=== PATIENT | female | born 1990 | race Caucasian/White ===

== ENCOUNTER 2016-10-03 22:53 | Inpatient (IN) ==
--- NOTE | 2016-10-03 20:46 | OB/GYN History & Physical ---
Date of Encounter: 10/03/16 Time of Encounter: 20:44 Assessment and Plan (1) 37 or more weeks gestation of Current visit: Yes Status: Acute monitor FHT FHT external monitoring continue labor progression (2) Active labor at term Current visit: Yes Status: Acute FHT monitor continue normal labor progression History of Present Illness Chief complaint: contractions HPI: Ms. Saba is a 26 year old female at 37.2 DIMAS 3.17 c/o contractions starting at about 5 am this morning, that were occurring about every ten minutes this morning, which progressed to every 6 minutes right before she came to the hospital and are now occurring every 4 mins. She states that she passed her mucous plug about 1pm yesterday, no rupture of membranes or loss of fluids. Pt of Dr. Linton. Has had uncomplicated so far. States she is having some nausea that just started a few minutes ago coinciding with contractions, also minimal LE edema Denies headache, change in vision, CP, SOB, no abdominal pain or vomiting. GBS - HIV - RPR - Rubella immune varicella immune Hep B immune Past Med Surg Social Fam HX - Past Medical History Medical history: no medical history Psychiatric history: anxiety - Social History Smoking Status: Former smoker Smokeless Tobacco Status: No Alcohol use: none Drug use: none - Family History Mother Adopted: No Family Member Ethnicity: Non- Twin of Family Member: Yes, Fraternal Living Status: Still Living Hx Family Cardiac Disorders: No Hx Family Respiratory Disorders: No Hx Family Cancer: No Hx Family GI Disorders: No Hx Family Genitourinary Disorders: No Hx Family Endocrine Disorder: No Hx Family Musculoskeletal Disorders: No Hx Family Neuromuscular Disorders: No Hx Family Neurologic Disorders: No Hx Family HEENT Disorders: No Hx Family Autoimmune Disorders: No Hx Family Reproductive Disorders: No Hx Family Psychosocial Disorders: No Hx Family Medical Disorders: No Obstetrical History - Pregnancies : 3 Para: 1 Term: 1 Ab's: 1 Livin - History/Complications History/Complications: - PAP in 2014 no PMHx of STI HPI fr labs Medications and Allergies Pnv95/Ferrous Fumarate/FA [ Caplet] 1 tab PO DAILY 10/03/16 [History] Allergies Cefaclor [From Ceclor] Allergy (Verified 10/03/16 20:42) Hives Review of System OB All systems PM: reviewed and no additional remarkable complaints except as stated (except see HPI) - Constitutional Constitutional ROS IM: as per HPI Exam - Constitutional Constitutional: well developed, well nourished, no acute distress, average body habitus - HEENT HEENT: EOMI, Mucus Membranes Moist - Neck Neck exam: full ROM - Lungs Respiratory exam: CTAB - Cardiovascular Cardiovascular exam: RRR, +S1, +S2 - Abdomen Abdomen: Present: bowel sounds normal, gravid, non tender - Extremities Extremities exam: pedal edema (trace), radial pulses palpable and symetrical Deep Tendon Reflex Grade: 2+ Normal - Cervix Dilation: 5 (per nursing) Effacement: 80 (per nursing) - Uterus Uterus exam: Present: normal size (gravid) Results All other labs normal. - Attending Attestation Veto Ireland MD FACOG
[~2016-10-03 22:53] MED LIST: Epidural Premix (fent/bupiv) 110 ML EP ONE; Famotidine 20 MG/2 ML VIAL IVP PRN; Metoclopramide 10 MG/2 ML VIAL IVP PRN; Naloxone 0.4 MG/ML INJ IVP PRN; Ondansetron 4 MG/2 ML VIAL IVP PRN; Ringers Solution, Lactated 1,000 ML ONE
--- NOTE | 2016-10-03 23:01 | Anesthesia Evaluation PreOp ---
Date of Encounter: 10/03/16 Time of Encounter: 10:56 - Past History Planned Operation: vaginal del, spontaneous Labor Cardiac History: Denies any Significant Hx Pulmonary History: Denies Any Significant HX TUBE TELLER History: Denies Any Significant HX Other Medical History: Denies Any Significant HX Anesthesia History: No Prior Anesthetic Complications, Past Anesthesia Alcohol Use: none Drug use: none Medications and Allergies Pnv95/Ferrous Fumarate/FA [ Caplet] 1 tab PO DAILY 10/03/16 [History] Allergies Cefaclor [From Ceclor] Allergy (Verified 10/03/16 20:42) Hives Anesthesia Exam - HEENT Pupil (Motor): Pupils equal Mallampati: II (tongue ring present, to be removed) Teeth: Normal Oral Opening: Greater than 3 - TUBE TELLER LOC: Oriented TUBE TELLER Motor: Normal RUE, Normal LUE, Normal RLE, Normal LLE, Normal Face TUBE TELLER Sensory: Normal: RUE, LUE, RLE, LLE, Face - Cardiac Rhythm: Regular - Pulmonary Breath Sounds: bilateral Clear Respiratory Effort: Symmetrical
[2016-10-03 23:04] LABS: Basophils % 0.2 %; Eosinophils % 0.1 %; Hematocrit 37.3 % (35.3-44.9); Immature Granulocytes % 0.4 % (0-4); Lymphocytes # 2.2 K/mcL (0.6-4.6); Lymphocytes % 13.1 %; Mean Corpuscular HGB Conc 34.9 g/dL (31.6-35.5); Mean Corpuscular Volume 88.8 fL (83.0-100.0); Mean Platelet Volume 10.2 fL (9.4-12.4); Monocytes # 1.1 K/mcL (0.0-1.3); Monocytes % 6.6 %; Neutrophils # 13.2 K/mcL (1.6-8.9); Platelet Count 224 K/mcL (140-400); Red Cell Distribution Width 12.4 % (11.5-14.5); Segmented Neutrophils % 79.6 %
--- NOTE | 2016-10-03 23:31 | Anesthesia Procedures ---
Date of Encounter: 10/03/16 Time of Encounter: 23:21 Procedures: Anesthesia - Epidural/Spinal Patient ID/Chart reviewed: Yes Patient examined: Yes OB Eval: Gestational age: 37 OB Eval: : 2 OB Eval: Hx Para: 1 OB Eval: Dilated at (cm): 5 OB Eval: Contractions: Non-stressed pattern Consent Obtained: Yes Site Prep: Aseptic Technique, Sterile prep and drape, 0.5% Chlorhexidine/Alcohol Patient position: upright Local Anesthetic: Lidocaine 1% Amount of Local Anesthetic used: 2 Touhy Needle Gauge: 18 Touhy Needle Depth (cm): 7 Catheter Depth at Skin (cm): 11 Test Dose (1.5% Lido + Epi): Volume given (mls): 3 Test Dose Result: Negative Loading Dose: Other: 12ml from solution Loading Dose Administered: Thru Catheter Infusion Med: 0.125% Bupivacaine w/ 2 mcg/ml Fentanyl Infusion Rate (mls/hr): [address]: Tegaderm, Tape Interspace Used: L3-L4 Loss of Resistance (MARY): Yes (saline) Blood: No CSF: No Paresthesia: No Vitals + FHT's: vss though out, FHR stable per RN's
--- NOTE | 2016-10-04 00:56 | OB Labor Progress Note ---
Date of Encounter: 10/04/16 Time of Encounter: 00:54 Labor Progress Note - Subjective Subjective: states pain is improved with epidural no complaints at this time - Cervix Cervix: 6cm 90% effaced - Heart Tones Heart Tones: 140s reactive cat1 - [place]: every 3-4 mins
[2016-10-04] MEDS ORDERED: Epidural Premix (fent/bupiv) 110 ML EP ONE (04:49)
[2016-10-04] MEDS ORDERED: Oxytocin 20 units/ LR 1000 mL 20 UNIT/1,000 ML BAG IVC ONE ×3 (07:24→13:02)
[2016-10-04] MEDS: Ringers Solution, Lactated 1,000 ML IVC SCH (07:29)
--- NOTE | 2016-10-04 09:00 | OB Labor Progress Note ---
Date of Encounter: 10/04/16 Time of Encounter: 08:58 Labor Progress Note - Subjective Subjective: Comfortable with epidural. - Cervix Cervix: 9/100/0 - Heart Tones Heart Tones: 160's with RNST - [place]: uc's q 2 min - Interventions Interventions: AROM clear, expect . - Plan Plan: Expect .
--- NOTE | 2016-10-04 10:42 | OB/GYN Procedure Note ---
Delivery - Delivery Date: 10/04/16 Provider: Tobais Segovia Delivery induction: none Delivery augmentation: rupture of membranes Delivery monitor: external FHT, external uterine Anesthesia: epidural Estimated Blood Loss: 250 - Infant (s) A Delivery Date: 10/04/16 Delivery Time: 10:22 Presentation: vertex Position: TANVI Route of delivery: Gender: Male Viability: Viable Pounds: 7 Ounces: 10 at 1 minute: 8 at 5 mins: 9 Shoulder Dystocia: not encountered Specimens collected: cord blood Placenta: spontaneous Cord: 3 umbilical vessels - Repair Episiotomy: none Laceration Description: Periurethral (superficial on right) - Complications Delivery complications: none - Disposition Mom disposition: stable in LDR Baker disposition: stable in LDR - Comments Comments: Pt s/p without complications.
[2016-10-04] MEDS ORDERED: Acetaminophen 325 MG TABLET PO PRN (13:02)
[2016-10-04] MEDS ORDERED: Oxytocin 20 units/ LR 1000 mL 20 UNIT/1,000 ML BAG IV SCH (13:02)
[2016-10-04] MEDS ORDERED: Rho Immune Globulin 1,500 UNIT SYRINGE IM PRN (13:02)
[2016-10-04] MEDS ORDERED: Measles/Mumps/Rubella Vacc 0.5 ML VIAL SQ PRN (13:02)
[2016-10-04] MEDS: Ibuprofen 600 MG TABLET PO PRN ×2 (13:23→19:51)
[2016-10-05 04:14] LABS: Basophils # 0.1 K/mcL (0.0-0.2); Basophils % 0.3 %; Eosinophils # 0.1 K/mcL (0.0-0.6); Eosinophils % 0.7 %; Hematocrit 33.7 % (35.3-44.9); Immature Granulocytes % 0.7 % (0-4); Lymphocytes # 2.6 K/mcL (0.6-4.6); Lymphocytes % 14.8 %; Mean Corpuscular HGB Conc 33.5 g/dL (31.6-35.5); Mean Corpuscular Hemoglobin 30.9 pg (28.0-33.3); Mean Corpuscular Volume 92.1 fL (83.0-100.0); Mean Platelet Volume 10.2 fL (9.4-12.4); Monocytes # 1.2 K/mcL (0.0-1.3); Monocytes % 7.2 %; Neutrophils # 13.2 K/mcL (1.6-8.9); Platelet Count 204 K/mcL (140-400); Red Blood Count 3.66 M/mcL (3.82-4.97); Red Cell Distribution Width 12.8 % (11.5-14.5); Segmented Neutrophils % 76.3 %
[2016-10-05 04:28] LABS: Hemoglobin 11.3 g/dL (11.5-15.4)
[2016-10-05] MEDS ORDERED: Ringers Solution, Lactated 1,000 ML ONE (06:29)
[2016-10-05] MEDS: Ringers Solution, Lactated 1,000 ML IVC SCH (06:30)
[2016-10-05] MEDS ORDERED: Lidocaine -MPF 2% 2 ML VIAL ONE ×2 (07:17→07:18)
[2016-10-05] MEDS ORDERED: Lidocaine -MPF 4% 5 ML AMPUL ONE (07:17)
[2016-10-05] MEDS ORDERED: *HR* Succinylcholine 200 MG/10 ML VIAL IVP ONE (07:17)
[2016-10-05] MEDS ORDERED: *HR* FentaNYL (PF) 100 MCG/2 ML VIAL ONE (07:18)
[2016-10-05] MEDS ORDERED: *HR* Midazolam HCl 2 MG/2 ML VIAL ONE (07:18)
[2016-10-05] MEDS ORDERED: *HR* Propofol 200 MG/20 ML VIAL IVP ONE (07:18)
[2016-10-05] MEDS ORDERED: Bupivacaine/EPI 1:200k 0.25%PF 10 ML VIAL INFILT ONE (07:26)
[2016-10-05] MEDS ORDERED: Metoclopramide 10 MG/2 ML VIAL ONE (07:35)
[2016-10-05] MEDS ORDERED: Famotidine 20 MG/2 ML VIAL ONE (07:35)
[2016-10-05] MEDS ORDERED: Acetaminophen IV 1,000 MG/100 ML INFUS..BTL ONE (07:35)
--- NOTE | 2016-10-05 07:53 | Anesthesia Evaluation PreOp ---
Date of Encounter: 10/05/16 Time of Encounter: 07:35 - Past History Planned Operation: BPS Cardiac History: Denies any Significant Hx Pulmonary History: Former smoker (quit approx 9 months ago) SHIP PILOT DISPATCHER History: Denies Any Significant HX Other Medical History: Denies Any Significant HX Anesthesia History: No Prior Anesthetic Complications, Past Anesthesia (BMT, [place] teeth extractions), MH (NO FamHx of MH) : No ( Day #1) Alcohol Use: none Drug use: none Medications and Allergies Pnv95/Ferrous Fumarate/FA [ Caplet] 1 tab PO DAILY 10/03/16 [History] Allergies Cefaclor [From Ceclor] Allergy (Verified 10/03/16 20:42) Hives - Meds/Allergy Pre-op Review Medications Reviewed: Yes Allergies Reviewed: Yes Beta Blockers on Current Med List: No Anesthesia Results - Labs 10/05/16 03:44 Anesthesia Exam Vital Signs Temp Pulse Resp BP Pulse Ox 10/05/16 07:09 97.6 F 87 16 108/70 96 10/04/16 19:58 98.3 F 97 12 101/65 97 10/04/16 15:00 98.3 F 96 16 101/54 97 10/04/16 14:02 99 F 98 16 111/68 97 10/04/16 14:00 99 F 98 16 111/68 97 10/04/16 13:00 99 F 93 16 125/76 99 Intake and Output 10/04/16 10/04/16 10/05/16 15:59 23:59 07:59 Intake Total 1000 / 1000 860 / 860 Output Total 1550 / 1550 800 / 800 400 / 400 Balance -550 / -550 60 / 60 -400 / -400 Intake: IV Fluids 1000 / 1000 Oral 860 / 860 Output: Urine 900 / 900 800 / 800 400 / 400 Estimated Blood Loss 250 / 250 Catheter 400 / 400 Other: Meal Dinner Percent of Meal Consumed 100% Weight 74.5 kg Height: 5'4" Weight: 164# BMI = 28 NPO (# of Hours): MNoc - HEENT Pupil (Motor): Pupils equal, EOMI Mallampati: II Teeth: Normal (fair dentition w/shallow chip vs. cavity and front top surface) Oral Opening: Greater than 3 - SHIP PILOT DISPATCHER LOC: Oriented SHIP PILOT DISPATCHER Motor: Normal RUE, Normal LUE, Normal RLE, Normal LLE, Normal Face SHIP PILOT DISPATCHER Sensory: Normal: RUE, LUE, RLE, LLE, Face - Cardiac Rhythm: Regular Murmur: None - Pulmonary Breath Sounds: bilateral Clear Respiratory Effort: Symmetrical Anesthesia Assess/Plan ASA Score: 2 Modified [place] Scale for Level of Consciousness: Cooperative, oriented, and tranquil Anesthetic Plan: General Monitoring Plan: Standard Monitors Recovery Plan: PACU Anes Supervising Prov Stmt: Pt seen/evaluated, R&B discussed, questions answered and consent obtained. Cesar Bee MD
[2016-10-05] MEDS ORDERED: Dexamethasone 4 MG/ML VIAL ONE (08:30)
[2016-10-05] MEDS ORDERED: Ondansetron 4 MG/2 ML VIAL ONE (08:30)
[2016-10-05] MEDS ORDERED: Ketorolac 30 MG/ML VIAL ONE (08:44)
[2016-10-05] MEDS ORDERED: *HR* HYDROmorphone 2 MG/ML SYRINGE ONE (08:47)
[2016-10-05] MEDS ORDERED: Prenatal Vit/FA 1 EACH TABLET PO SCH (09:00)
--- NOTE | 2016-10-05 09:08 | Discharge Summary ---
Date of Encounter: 10/05/16 Time of Encounter: 09:10 - Discharge Diagnosis (1) (normal spontaneous vaginal delivery) Priority: Primary Status: Acute Comments: Doing well with appropriate lochia and minimal discomfort. (2) S/P tubal ligation Priority: Secondary Status: Acute - Discharge Medications Prescriptions: Ibuprofen [Motrin] 600 mg PO Q6HR PRN #40 tablet PRN Reason: Cramping HYDROcodone/Acet 5/325 mg [[place] 5-325 mg] 1 tab PO Q4H PRN #25 tab PRN Reason: post op pain Home Medications: Pnv95/Ferrous Fumarate/FA [ Caplet] 1 tab PO DAILY 10/03/16 [History] HYDROcodone/Acet 5/325 mg [[place] 5-325 mg] 1 tab PO Q4H PRN #25 tab 10/05/16 [Rx ] Ibuprofen [Motrin] 600 mg PO Q6HR PRN #40 tablet 10/05/16 [Rx] Allergies/Adverse Reactions: Allergies Cefaclor [From [facility]] Allergy (Verified 10/03/16 20:42) Hives Data Procedures and tests throughout hospitalization: Laboratory Tests 10/03/16 10/04/16 10/05/16 22:47 10:49 03:44 WBC 16.6 H 17.3 H RBC 4.20 3.66 L Hgb 13.0 11.3 L D Hct 37.3 33.7 L MCV 88.8 92.1 MCH 31.0 30.9 MCHC 34.9 33.5 RDW 12.4 12.8 Plt Count 224 204 MPV 10.2 10.2 Immature Gran % 0.4 0.7 Seg Neutrophils % 79.6 76.3 Lymphocytes % 13.1 14.8 Monocytes % 6.6 7.2 Eosinophils % 0.1 0.7 Basophils % 0.2 0.3 Neutrophils # 13.2 H 13.2 H Lymphocytes # 2.2 2.6 Monocytes # 1.1 1.2 Eosinophils # 0.0 0.1 Basophils # 0.0 0.1 Baby's Blood Type O RH NEGATIVE Mother's Blood Type O RH NEGATIVE Rhogam Indicated NO Labs on day of discharge: Labs from last 24 hours 10/05/16 10/04/16 03:44 10:49 WBC 17.3 H RBC 3.66 L Hgb 11.3 L D Hct 33.7 L MCV 92.1 MCH 30.9 MCHC 33.5 RDW 12.8 Plt Count 204 MPV 10.2 Immature Gran % 0.7 Seg Neutrophils % 76.3 Lymphocytes % 14.8 Monocytes % 7.2 Eosinophils % 0.7 Basophils % 0.3 Neutrophils # 13.2 H Lymphocytes # 2.6 Monocytes # 1.2 Eosinophils # 0.1 Basophils # 0.1 Baby's Blood Type O RH NEGATIVE Mother's Blood Type O RH NEGATIVE Rhogam Indicated NO - Impressions s/p yest and pp bps today. Doing well. Appropriate pain and lochia. Date of admission: 10/03/16 22:53 Primary care physician: PCP NO Consults: 10/04/16 13:02 Consult to Wet Pour Supervisor [CONS] Routine Comment: Vaginal delivery, consult needed - Patient Status Disposition: Home, Self-Care Condition: Good Functional capacity at discharge: independent ambulation Overall status at discharge: patient is progressing back to baseline - Discharge Instructions Follow Up With: NO,PCP [Primary Care Provider] - Tobias Segovia MD [Partnered Physician] - Additional Instructions: F/u 2 weeks s/p BPS - Diet and Activity Activity: increase activity as tolerated Diet: advance to your usual diet Hospital Course NEWS VIDEOTAPE EDITOR Time Attestation: Total time spent providing and/or coordinating discharge services: Exam - Constitutional Vitals: Temp Pulse Resp BP Pulse Ox 97.6 F 87 16 108/70 96 10/05/16 07:09 10/05/16 07:09 10/05/16 07:09 10/05/16 07:09 10/05/16 07:09 General appearance IM: A&O X 3 - Respiratory Respiratory exam: Present: CTAB - Cardiovascular Cardiovascular exam IM: Present: RRR - GI/Abdominal GI/Abdominal exam IM: normal bowel sounds Incision: normal - Uterus Position: 2 Fingers Below Umbilicus - Extremities Exam Extremities exam IM: Present: full ROM - Neurological Exam Neurological exam: oriented X3 - VTE Reasons for not Prescribing Prophylaxis: Treatment not Indicated - Low risk for VTE
--- NOTE | 2016-10-05 09:18 | OB/GYN Procedure Note ---
OB-LINES TENDER: Procedure - Diagnosis Date of procedure: 10/05/16 Pre-op diagnosis: Multi parity desires permanent sterilization Post-op diagnosis: same - Procedure Procedure: Modified [place] bilateral partial salpingectomy Surgeon: Tobias Segovia Anesthesia Type: General Estimated blood loss (cc): 4 Fluids: crystalloid Procedure Complications: None Specimens collected: Bilateral tubal segments Disposition: PACU Findings: Normal fallopian tubes bilaterally Narrative: Since 26-year-old multiparous female strong desire for permanent sterilization. She had requested bilateral partial salpingectomy and signed appropriate consent. Description of procedure patient was taken operating room where general anesthesia was administered. She was then prepped and draped in usual sterile fashion bladder was drained with St[place] catheter. A small incision was made below the umbilicus was sharply dissected down to the fascia peritoneum and entered the abdominal cavity. The left fallopian tube was identified. With the Liberty clamp and followed out to its fimbriated end. The isthmus was then double ligated with 0 plain catgut suture and the knuckle tube was then resected. The right fallopian tube was then identified and followed out to its fimbriated end and 2 was grasped with David clamp doubly ligated and transected clamps removed hemostasis was ensured. This point fascia was closed with 0 Vicryl. Skin edges were approximately 4 Vicryl. All sponge and instrument correct patient was taken to recovery in good condition.
[2016-10-05] MEDS ORDERED: Rho Immune Globulin 1,500 UNIT SYRINGE IM PRN (09:48)
[2016-10-05] MEDS ORDERED: Measles/Mumps/Rubella Vacc 0.5 ML VIAL SQ PRN (09:48)
[2016-10-05] MEDS ORDERED: Acetaminophen 325 MG TABLET PO PRN (09:48)
[2016-10-05] MEDS ORDERED: Ibuprofen 600 MG TABLET PO PRN (09:48)
--- NOTE | 2016-10-05 10:54 | Anesthesia Evaluation Post Op ---
Date of Encounter: 10/05/16 Time of Encounter: 09:30 - Vital Signs Vital Signs: Vital Signs/O2 Sat/Glucose, Most Current Temp Pulse Resp BP Pulse Ox 10/05/16 09:33 97.6 F 75 16 108/68 96 10/05/16 09:27 74 16 95/61 95 10/05/16 09:17 77 16 102/60 97 10/05/16 09:07 97.3 F L 72 16 95/54 96 10/05/16 07:09 97.6 F 87 16 108/70 96 - Lungs Lungs: Clear Ascult./Percussion - Airway Airway: Non-obstructed - Cardiovascular Regular Rate - Mental Status Mental Status: Alert & Oriented, Answers Appropriately - Pain Pain Scale: 2 Pain Scale used: Numeric (1 - 10) - Nausea Vomiting Nausea Vomiting: Not Present - Hydration Hydration: Ice chips, Has not voided - Discharge PostOp Status: Transfer Patient to floor
[2016-10-05] MEDS ORDERED: *HR* OxyCODONE/APAP 5/325 TABLET PO PRN (10:59)
[2016-10-05 12:19] VITALS: BP 112/63
[2016-10-06] MEDS ORDERED: Prenatal Vit/FA 1 EACH TABLET PO SCH (09:00)
== END 2016-10-05 14:29 | disposition home or self-care (01) | DRG 767 ==
LOC: 1NENULAB → 1NENUOBS 10-04 13:01
PROVIDERS: ADMIT Obstetrics & Gynecology; ATTEND Obstetrics & Gynecology